=== PATIENT | male | born 1965 | race Caucasian/White ===

== ENCOUNTER → 2019-06-03 | Outpatient (CLI) | payer OTHER ==
[~2019-06-03] VITALS: Ht 182.9 cm; Wt 77.1 kg
[~2019-06-03] MED LIST: PROTONIX40 M1 PO
--- NOTE | 2019-06-03 16:06 | P ---
[facility] [address] [place] [address] PROCEDURE REPORT Name: FRANCOISE FREITAS [id number] Admission: 06/03/19 Attend Phys: Gael Walker MD Discharge: Date of : 67 Report #: [id number] THIS REPORT FOR: //name// CC: [facility] physician/PCP Gael Gonzalez MD PROCEDURE: Upper endoscopy. BRIEF HISTORY: The patient is a 53-year-old male with reflux symptoms. He has also had a persistent left upper quadrant abdominal pain. PREOPERATIVE DIAGNOSIS: Reflux symptoms and left upper quadrant abdominal pain. POSTOPERATIVE DIAGNOSES: 1. Grade A esophagitis, healing. 2. Intermittently seen small hiatus hernia. 3. Diffuse erythematous antral gastritis. MEDICATIONS: Deep sedation with propofol per anesthesia. SPECIMEN: Biopsies of gastritis. ESTIMATED BLOOD LOSS: 3 mL. PROCEDURE: EGD with biopsy. FINDINGS: Prior to propofol sedation, procedure of upper endoscopy discussed with the patient as well as potential risks and its complications. He indicates he understands and desires to proceed. DESCRIPTION OF PROCEDURE: With the patient in left lateral decubitus position, the Olympus video endoscope was inserted in the cervical esophagus under direct vision without difficulty. Examination of this organ through its entire length revealed normal esophageal mucosa down the squamocolumnar junction. At the squamocolumnar junction, there was 1 focal area of erythema which is felt to represent an area of focal esophagitis which appears to be nearly healed. No strictures or masses were seen. Intermittently, a small 1-2 cm sliding type hiatus hernia was noted. The scope was advanced into the stomach, which was examined on end view as well as retroflexed views. There was a linear gastritis in the antrum. No ulcers or erosions were seen. No bleeding lesions were seen. Upon retroflexion, the proximal stomach was unremarkable. No mass lesions were seen in the cardia. Scope was advanced across the pylorus and duodenum. The duodenal bulb and postbulbar and sweep were inspected and noted to be unremarkable. At that point, the scope was slowly withdrawn and careful circumferential views confirmed the above findings. The patient tolerated the procedure well. [facility] [address] [place] [address] PROCEDURE REPORT Name: FRANCOISE FREITAS Room #: REG [facility] Shen.#: [id number] Admission: 06/03/19 Attend Phys: Gael Walker MD Discharge: Date of : 67 Report #: [id number] CONDITION OF THE PATIENT UPON DISCHARGE: Following procedure, he was drowsy and prepared for colonoscopy. INSTRUCTIONS TO PATIENT AND FAMILY AT TIME OF DISCHARGE: He does have evidence of a mild esophagitis which appears to be healing. We will have him continue his pantoprazole daily for 4 more weeks and then he may reduce to an as needed schedule to control symptoms. As far as his left upper quadrant pain, I do not see any other significant mucosal abnormalities. If symptoms persist, imaging of the upper abdomen may be a consideration. He will follow up with Dr. Gonzalez. We will follow up on biopsies and make further recommendations as needed. Proceed with colonoscopy. <ELECTRONICALLY SIGNED> By: Gael Walker MD 06/03/19 1606 [id number] 1130 Gael Walker MD /nt
--- NOTE | 2019-06-03 16:06 | P ---
[facility] [address] [place] [address] PROCEDURE REPORT Name: FRANCOISE FREITAS [id number] Admission: 06/03/19 Attend Phys: Gael Walker MD Discharge: Date of : 67 Report #: [id number] THIS REPORT FOR: //name// CC: [facility] physician/PCP Gael LOGAN MD DATE OF SERVICE: 06/03/2019 OUTPATIENT COLONOSCOPY REPORT BRIEF HISTORY: The patient is a 53-year-old male for average risk screening colonoscopy. His last colonoscopy was 11 years ago. PREOPERATIVE DIAGNOSIS: Average risk screening colonoscopy. POSTOPERATIVE DIAGNOSIS: A 5 mm sessile polyp at distal sigmoid at 20 cm. SPECIMEN: Polyp from 20 cm. ESTIMATED BLOOD LOSS: 3 mL. PROCEDURE: Colonoscopy to cecum and terminal ileum with snare polypectomy. FINDINGS: Prior to propofol sedation, procedure of colonoscopy discussed with the patient as well as potential risks and its complications. He indicates he understands and desires to proceed. DESCRIPTION OF PROCEDURE: With the patient in left lateral decubitus position, digital examination was completed, which revealed no abnormalities. Subsequently, the Olympus video colonoscope was introduced in the rectum, advanced under direct vision to the cecum. Done with minimal difficulty. The cecum was identified by the ileocecal valve and the appendiceal orifice. I was able to visualize the distal segment of the terminal ileum, which was inspected and noted to be unremarkable. At that point, the scope was slowly withdrawn and careful circumferential views were obtained. Upon slow withdrawal of the scope, the prep was excellent. The mucosa was within normal limits, normal vascular pattern, normal light reflex. As we withdrew the scope, the mucosa was normal. All segments of the colon were normal down to the distal sigmoid. In the distal sigmoid, a 5 mm sessile polyp was seen and removed by cold snare polypectomy. The scope was further withdrawn and no additional lesions were seen. The mucosa was normal. Scope was withdrawn in the distal rectum. Upon retroflexion, no abnormalities were seen. The scope was withdrawn. The patient tolerated the procedure well. CONDITION OF THE PATIENT UPON DISCHARGE: Following procedure, the patient [address] [address] PROCEDURE REPORT Name: PILLO FREITASNDAN Room #: REG [facility].#: [id number] Admission: 06/03/19 Attend Phys: Gael Walker MD Discharge: Date of : 67 Report #: [id number] drowsy, arousable and conversant and will be discharged home when fully ambulatory. INSTRUCTIONS TO THE PATIENT AND FAMILY AT THE TIME OF DISCHARGE: One small polyp removed as described above. He does have an adenomatous appearance, but does appear benign. We will follow up on pathology. If the polyp is an adenoma, which I anticipate, I would suggest he return in 5 years for a surveillance colonoscopy. If it is hyperplastic, then 10 years would be reasonable. He will return to care of Dr. Logan. Return to see me as needed. Last colonoscopy was 11 years ago. Withdrawal time from the cecum was 12 minutes and 12 seconds. <ELECTRONICALLY SIGNED> By: Gael Walker MD 06/03/19 1606 0846 1130 Gael Walker MD /nt
--- NOTE | 2019-06-04 14:06 | PATH ---
[facility] [address] [place] [address] PATHOLOGY RPT PROCEDURE Name: PILLO PANCHALNDAN Room #: REG [facility] Gotti.#: [id number] Admission: 06/03/19 Date of : 67 Discharge: Report #: [id number] Path Case #: [id number] [facility] Accession Number: [id number] . 01 Material submitted: . PART A: stomach - BX GASTRITIS R/O H PYLORI PART B: colon - POLYP AT 20CM . 01 Clinical history: . Pre-OP DX: GERD, abdominal pain Post-OP DX: Gastritis, esophagitis, small hiatal hernia, colon polyp . 02 Diagnosis: A. Stomach, biopsy: - Chronic superficial gastritis, mild. - No evidence of Helicobacter pylori on immunoperoxidase stain. . B. Colon, 20 cm, biopsy: - Adenomatous polyp. . (DAMARI:kendal; 06/04/2019) QLM/06/04/2019 . 02 Electronically signed: . Chay Duff MD, Pathologist NPI- [id number] . 01 Gross description: . A. Received in formalin labeled "Francoise Panchal, BX gastritis, rule out H. pylori," are 6 segments of lopez soft tissue measuring 1.8 x 1.1 x 0.2 cm in aggregate dimensions and ranging from 0.3 to 0.7 cm in maximum dimension. The specimen is submitted entirely in cassette A1. . B. Received in formalin labeled "Francoise Panchal, polyp at 20 cm," is a single segment of lopez soft tissue measuring 0.3 cm in maximum dimension. The specimen is entirely submitted in cassette B1. (TSD; 06/03/2019) TOB/TOB . 02 Pathologist provided ICD-10: K29.30, D12.6 . 02 CPT . 660613, 384731 Specimen Comment: A courtesy copy of this report has been sent to Specimen Comment: [phone]. Specimen Comment: Report sent to [address] [address] PATHOLOGY RPT PROCEDURE Name: FRANCOISE PANCHAL Room #: REG [facility] Ta.Vanessa.#: [id number] Admission: 06/03/19 Date of : 67 Discharge: Report #: [id number] Path Case #: [id number] Performed at: [address], [place], [place] [id number] MD Manish Cruz MD Phone: [phone] Performed at: [address] [id number] MD Brooklynn Layne MD Phone: [phone]
== END | disposition home or self-care (01) ==
LOC: GI 07:07
DX: Z12.11 Encounter for screening for malignant neoplasm of colon (principal); D12.5 Benign neoplasm of sigmoid colon; K29.30 Chronic superficial gastritis without bleeding; K21.0 Gastro-esophageal reflux disease with esophagitis; K44.9 Diaphragmatic hernia without obstruction or gangrene; Z79.899 Other long term (current) drug therapy; Z98.890 Other specified postprocedural states; Z98.52 Vasectomy status
CPT/HCPCS: 62110; 62900